=== PATIENT | female | born 1990 | race Caucasian/White ===

== ENCOUNTER → 2020-07-05 | Outpatient (REF) | payer BC ==
[2020-07-05 18:02] LABS: HEMATOCRIT 41.2 % (36.0-47.0); HEMOGLOBIN 13.3 g/dl (12.0-15.5); MEAN CORPUSCULAR HEMOGLOBIN 28.2 pg (27.0-33.0); MEAN CORPUSCULAR HGB CONC 32.3 g/dl (32.0-36.5); MEAN CORPUSCULAR VOLUME 87.5 fl (80.0-96.0); PLATELET COUNT, AUTOMATED 145 10^3/uL (150-450); RED BLOOD COUNT 4.71 10^6/uL (4.00-5.40); WHITE BLOOD COUNT 14.1 10^3/uL (4.0-10.0)
[2020-07-05 19:19] LABS: HEPATITIS C VIRUS ABY INDEX < 0.0 INDEX (<0.8); HIV 1&2 SCREEN CENTAUR NEGATIVE (NEGATIVE)
[2020-07-05 20:03] LABS: CHLAMYDIA DNA AMPLIFICATION NEGATIVE (NEGATIVE); GC DNA AMPLIFICATION NEGATIVE (NEGATIVE)
== END ==
LOC: M PLALAB 15:02
PROVIDERS: ATTEND Advanced Practice Midwife
DX: Z34.01 Encounter for supervision of normal first pregnancy, first trimester (principal)

== ENCOUNTER → 2020-09-23 | Outpatient (CLI) | payer BC ==
--- NOTE | 2020-09-23 10:09 | REP ---
INDICATION: ANATOMY. Nineteen weeks 3 days by LMP MICHAEL by LMP February 14, 2021. COMPARISON: None. TECHNIQUE: Transabdominal obstetric sonography. FINDINGS: Scanning through the gravid uterus demonstrates a viable single intrauterine gestation in transverse head to the maternal left lie. motion is observed and heart rate is recorded at 142 beats per minute. A anterior placenta is seen, grade 0, without evidence of placenta previa. Closed cervical length is measured at 3.7 cm transabdominally. No extrauterine abnormality is observed. Amniotic fluid is subjectively normal. No anomaly is seen. The following anatomic structures are identified and felt to be sonographically unremarkable: cranium, choroid plexus, cavum, cerebellum and posterior fossa, face and profile, lungs, diaphragm, left-sided stomach, abdominal wall cord insertion, three-vessel umbilical cord, kidneys and bladder, spine, and upper and lower extremities. four-chamber heart with left and right ventricular outflow tract views are less than optimally achieved today due to position. Biometry chart: BPD 4.6 cm, 20 weeks 0 days Head circumference 17.4 cm, 20 weeks 0 days Abdominal circumference 15.3 cm, 20 weeks 3 days Femur length 3.4 cm, 20 weeks 5 days Humeral length 3.2 cm, 20 weeks 6 days HC AC ratio normal 1.14 Cephalic index normal 0.73 Estimated weight 357 g, 0 lb 12 oz, greater than 97th percentile for 19 weeks 3 days. IMPRESSION: Viable single intrauterine gestation at 20 weeks 3 days by today's composite sonographic criteria. MICHAEL by today's sonography February 07, 2021. No complication identified. <Electronically signed by Grzegorz Lau > 09/23/20 1001
== END ==
LOC: M WHC 08:03
PROVIDERS: ATTEND Advanced Practice Midwife
DX: Z34.02 Encounter for supervision of normal first pregnancy, second trimester (principal); Z3A.20 20 weeks gestation of pregnancy

== ENCOUNTER → 2020-10-18 | Outpatient (CLI) | payer BC ==
--- NOTE | 2020-10-18 16:47 | REP ---
INDICATION: F/U ANATOMYY COMPARISON: 09/23/2020 TECHNIQUE: Transabdominal obstetrical ultrasound with color Doppler evaluation. FINDINGS: Examination demonstrates a single live intrauterine in cephalic presentation. motion is identified by technologist. Placenta is noted anterior and grade 1 without evidence for placenta previa or abruption. Amniotic fluid volume is normal. Cervix measures 3.7 cm in length and appears closed.. Gestational age by LMP and 1st U/S 23 weeks 0 days with MICHAEL 02/14/2021. Gestational age by current measurements 24 weeks 1 day with MICHAEL 02/06/2021. FHR equals 147 beats per minute. Estimated weight 643 grams (85thpercentile). Anatomical assessment demonstrates normal structures including cranium, choroid plexus, cerebellum, lungs, diaphragm, stomach, abdominal wall, kidneys/bladder, spine, extremities and three-vessel cord. Continued limited evaluation of the heart/ventricular outflow tracts again noted.. IMPRESSION: Single live intrauterine in cephalic presentation demonstrating appropriate interval growth. Limited evaluation of the heart/ventricular outflow tracts again noted due to positioning. <Electronically signed by Anam Gonzalez > 10/18/20 [id number]
== END ==
LOC: M WHC 16:01
PROVIDERS: ATTEND Advanced Practice Midwife
DX: Z34.02 Encounter for supervision of normal first pregnancy, second trimester (principal)

== ENCOUNTER → 2020-11-19 | Outpatient (CLI) | payer BC ==
--- NOTE | 2020-11-21 05:02 | REP ---
INDICATION: F/U ANATOMY COMPARISON: 10/18/2020 TECHNIQUE: Transabdominal obstetrical ultrasound with color Doppler evaluation. FINDINGS: Examination demonstrates a single live intrauterine in cephalic presentation. motion is identified by technologist. Placenta is noted anterior and grade 1 without evidence for placenta previa or abruption. Amniotic fluid volume is normal. Cervix measures 3.8 cm in length and appears closed.. Selected gestational age: 27 weeks 4 days with MICHAEL 02/14/2021. Gestational age by current measurements 29 weeks 6 days with MICHAEL 01/29/2021. FHR equals 139 beats per minute. Estimated weight 1386 grams (greater than 97thpercentile). Anatomical assessment is again limited with regards to heart/ventricular outflow tracts due to positioning and motion. IMPRESSION: 1. Single live intrauterine demonstrating greater than expected interval growth. 2. Incomplete evaluation of the heart/ventricular outflow tracts due to positioning and motion. <Electronically signed by Anam Gonzalez > 11/21/20 [id number]
== END ==
LOC: M WHC 15:35
PROVIDERS: ATTEND Specialist
DX: Z34.82 Encounter for supervision of other normal pregnancy, second trimester (principal); Z3A.24 24 weeks gestation of pregnancy

== ENCOUNTER → 2020-12-07 | Outpatient (CLI) | payer BC, OTHER ==
[2020-12-07 15:39] LABS: HEMATOCRIT 35.6 % (36.0-47.0); HEMOGLOBIN 11.3 g/dl (12.0-15.5); MEAN CORPUSCULAR HEMOGLOBIN 28.1 pg (27.0-33.0); MEAN CORPUSCULAR HGB CONC 31.7 g/dl (32.0-36.5); MEAN CORPUSCULAR VOLUME 88.6 fl (80.0-96.0); PLATELET COUNT, AUTOMATED 223 10^3/uL (150-450); RED BLOOD COUNT 4.02 10^6/uL (4.00-5.40); WHITE BLOOD COUNT 10.6 10^3/uL (4.0-10.0)
== END ==
LOC: M PLALAB 09:28
PROVIDERS: ATTEND Specialist
DX: Z34.03 Encounter for supervision of normal first pregnancy, third trimester (principal)

== ENCOUNTER → 2021-01-20 | Outpatient (REF) | payer BC, OTHER | LOC: M SFHCWAGY 16:59 | PROVIDERS: ATTEND Advanced Practice Midwife | DX: O99.213 Obesity complicating pregnancy, third trimester (principal); E66.9 Obesity, unspecified; Z3A.00 Weeks of gestation of pregnancy not specified ==

== ENCOUNTER 2021-02-19 20:50 | Inpatient (IN) | payer BC, OTHER ==
[~2021-02-19] VITALS: Ht 157.5 cm; Wt 97.7 kg
[2021-02-19] MEDS ORDERED: ONDANSETRON 4MG/2ML VIAL IV ONE (22:05)
[2021-02-19] MEDS ORDERED: LACTATED RINGER'S 1000 ML IV STA (22:05)
[2021-02-19] MEDS ORDERED: ONDANSETRON 4MG/2ML VIAL As Ordered ONE (22:05)
[2021-02-19] MEDS ORDERED: LR 1,000 ML IV SCH (22:05)
[2021-02-19 22:10] VITALS: BP 107/73
[2021-02-19] MEDS ORDERED: PENICILLIN G POTASSIUM IV 5 MU in D5W MINI-BAG PLUS 100 ML IV STA (22:19)
[2021-02-19] MEDS: LR 1,000 ML IV SCH (22:20)
--- NOTE | 2021-02-19 22:29 | HPEPDOC ---
Obstetrical History & Physical General Date of Admission Feb 19, 2021 at 22:16 History of Present Illness 30yo G1 at 40w5d presents with c/o contractions. Reports active movement. No vaginal bleeding or LOF. 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 BREAST: . ABDOMEN: Gravid and non-tender to touch. FETUS: Is vertex (VTX) by sterile vaginal examination (SVE), fetus is vertex (VTX) by Jayesh. HEART RATE: Regular rate and rhythm. LUNGS: Clear to auscultation (CTA). EXTREMITIES: No edema. No clonus. Deep tendon reflexes (DTRs) + . Pertinent Laboratoy Data Blood Type: A+ RBC Antibody Screen: Negative HIV: Negative Hepatitis B: Negative Hepatitis C: Negative Rapid Plasma Reagin: Nonreactive Rubella: Immune Chlamydia/Gonorrhea: Negative Group B Streptococcus: Positive Glucose Tolerance Test: 99 Anatomy Ultrasound Placenta Location: Anterior Placenta Previa: No Vaginal Examination Dilation: 4 cm Effacement: 90% Station: -2 Cervical Consistency: Soft Cervical Position: Anterior Presentation: Cephalic presentation Assessment Variability: Moderate Accelerations: Positive Tocometer Contractions: Yes Assessment/Plan Assessment 30yo G1 at 40w5d in active labor Reassuring status Plan Admit and orient. Health Aide and consent. Group B Streptococcus (GBS) positive. Labs and intravenous (IV) per unit protocol. Counseled on Pitocin and induction of labor (IOL). Anticipate normal spontaneous delivery (). C-S as appropriate. NADIA KHOURY MD. Feb 19, 2021 22:29
[2021-02-19] MEDS ORDERED: ZYRTTAB8 PO ×2 (22:33)
[2021-02-19] MEDS ORDERED: PRENTAB9 PO (22:33)
[2021-02-19] MEDS ORDERED: ACET-897 PO (22:33)
[2021-02-19] MEDS ORDERED: HOME MED LIST COMPLETE! XX SCH (22:35)
[2021-02-19 22:55] LABS: HEMOGLOBIN 12.4 g/dl (12.0-15.5); MEAN CORPUSCULAR HEMOGLOBIN 27.2 pg (27.0-33.0); MEAN CORPUSCULAR HGB CONC 32.6 g/dl (32.0-36.5); MEAN CORPUSCULAR VOLUME 83.3 fl (80.0-96.0); PLATELET COUNT, AUTOMATED 308 10^3/uL (150-450); RED BLOOD COUNT 4.56 10^6/uL (4.00-5.40); WHITE BLOOD COUNT 19.2 10^3/uL (4.0-10.0)
[2021-02-20] VITALS (68 sets, daily range): BP systolic 80–139; BP diastolic 47–84
[2021-02-20] MEDS ORDERED: FENTANYL 2MCG/ML ROPIVACAINE 0.2% IN 0.9% NACL 100ML IVBAG As Ordered ONE (01:01)
[2021-02-20] MEDS ORDERED: FENTANYL/ROPIVACAINE/NACL BAG 100 ML EPIDURAL SCH (02:00)
[2021-02-20] MEDS ORDERED: ePHEDrine SULFATE 25 MG/5 ML(5MG/ML) SYRINGE IV PRN (02:00)
[2021-02-20] MEDS ORDERED: ONDANSETRON 4MG/2ML VIAL IV PRN (02:00)
[2021-02-20] MEDS ORDERED: EPIDURAL/PCA KEYS XX PRN (02:00)
[2021-02-20] MEDS ORDERED: diphenhydrAMINE 50MG/ML VIAL (J1200) IV PRN (02:00)
[2021-02-20] MEDS ORDERED: EPIDURAL COMMENT XX SCH (02:00)
[2021-02-20] MEDS ORDERED: LACTATED RINGER'S 1000 ML IV PRN (02:00)
[2021-02-20] MEDS ORDERED: NALOXONE INJ 0.4MG/1ML VIAL (J2310 PER 1MG) IV PRN (02:00)
[2021-02-20] MEDS ORDERED: REFRIGERATOR IV KEYS XX PRN (02:00)
[2021-02-20] MEDS ORDERED: PENICILLIN G POTASSIUM IV 2.5 MU in IV 1 EA IV SCH (03:00)
[2021-02-20] MEDS: LR 1,000 ML IV SCH ×2 (06:07→08:54)
[2021-02-20] MEDS ORDERED: OXYTOCIN 30 UNITS IN 0.9% NaCl 500ML IV BAG (J2590) As Ordered ONE (06:38)
[2021-02-20] MEDS ORDERED: LR 1,000 ML IV SCH (06:40)
[2021-02-20] MEDS ORDERED: OXYTOCIN DRIP 30 UNITS in IV 1 EA IV SCH ×2 (06:40→14:00)
--- NOTE | 2021-02-20 06:46 | IPNPDOC ---
Obstetrical Progress Note Date of Service Feb 20, 2021 Subjective Comfortable following epidural. Has had maternal and tachycardia. Patient WBC 19,000. She is unsure when she ruptured. Had some leakage yesterday morning around 10am. on exam no membranes to rupture. Objective Vital Signs Date Time Temp Pulse Resp B/P (MAP) Pulse Ox O2 Delivery O2 Flow Rate FiO2 02/20/21 05:33 110 101/57 (72) Assessment Variability: Moderate Heart Rate Tracing: Category I Tocometer Contractions: Yes Frequency: regular Sterile Vaginal Examination Dilation: 6 cm Effacement (%): 100% Station: -1 Cervical Consistency: Soft Cervical Position: Anterior Postion/Presentation: Cephalic presentation Assessment and Plan Age: 30 Status: Reassuring Group B Streptococcus: Positive Additional Comments - will start on unasyn for concerns of prolong rupture of membrane with the start of chorioamnionitis - pitocin augmentation. NADIA KHOURY MD. Feb 20, 2021 06:46
[2021-02-20] MEDS: AMPICILLIN SOD/SULBACTAM SOD 3 GM in D5W MINI-BAG PLUS 100 ML IV SCH ×2 (07:55→13:25)
[2021-02-20] MEDS ORDERED: PHENYLephrine 500MCG 5ML (100MCG/ML) SYRINGE As Ordered ONE (07:59)
[2021-02-20 13:59] LABS: CORD GAS ABE V -3.2; CORD GAS HCO3 V 22.5 MEQ/L; CORD GAS O2 SAT V 58.5 %; CORD GAS PCO2 V 42.5 mmHg; CORD GAS PH V 7.341 UNITS; CORD GAS PO2 V 26.6 mmHg; CORD GAS SBC V 20.8 MEQ/L; CORD GAS TCO2 V 23.8 MEQ/L
[2021-02-20] MEDS ORDERED: ACETAMINOPHEN 500 MG TAB PO PRN (14:00)
[2021-02-20] MEDS ORDERED: RHOGAM 300 MCG (1500 IU) INJ (J2790) IM SCH (14:00)
[2021-02-20] MEDS ORDERED: MEASLES,MUMPS,RUBELLA VACCINE INJ (MMR-II) (90707) SC SCH (14:00)
[2021-02-20] MEDS ORDERED: MOM 30ML SUSPENSION UDC PO PRN (14:00)
[2021-02-20] MEDS ORDERED: IBUPROFEN 600MG TAB PO PRN (14:00)
[2021-02-20] MEDS ORDERED: DIBUCAINE 1% OINTMENT 30GM TOP PRN (14:00)
[2021-02-20] MEDS ORDERED: DOCUSATE SODIUM 100MG CAPSULE PO PRN (14:00)
[2021-02-20] MEDS ORDERED: IBUPROFEN 800 MG TAB PO PRN (14:00)
[2021-02-20] MEDS ORDERED: METHYLERGONOVINE MALEATE 0.2 MG/ML VIAL (J2210) IM PRN (14:00)
[2021-02-20] MEDS ORDERED: ACETAMINOPHEN TAB 650MG DOSE (2X325MG) PO PRN (14:00)
[2021-02-20] MEDS ORDERED: METHYLERGONOVINE MALEATE 0.2 MG TAB PO PRN (14:00)
[2021-02-20 14:02] LABS: CORD GAS ABE A -5.3; CORD GAS HCO3 A 24.3 MEQ/L; CORD GAS O2 SAT A 35.7 %; CORD GAS PCO2 A 64.3 mmHg; CORD GAS PH A 7.196 UNITS; CORD GAS PO2 A 20.5 mmHg; CORD GAS SBC A 18.6 MEQ/L; CORD GAS TCO2 A 26.3 MEQ/L
--- NOTE | 2021-02-20 14:09 | DNPDOC ---
[facility] Delivery Note Delivery Note DATE OF DELIVERY: 02/20/2021 TIME OF : 1334 GENDER: 89 APGARS: 9 and 9. WEIGHT: 3530 g or 7 lbs. 13 oz. LACERATIONS: 1MLL ANESTHESIA: epidural ESTIMATED BLOOD LOSS: 400 ml COUNTS: 5 laparotomy sponges accounted for prior to after delivery. 3 sharps removed from delivery field. DELIVERY NOTE: On on 02/20/2021 at 1334 this patient is a 30-year-old 1 now para 1 a spontaneous vaginal delivery of a liveborn female infant Apgars 8 and 9 weight was 3530 g 7 lbs. 13 oz. Head was delivered occiput anterior (OA). Nuchal cord was manually reduced, followed by delivery of the shoulders and corpus. was handed to mom with a good cry. Cord was clamped times two and was cut by support person under my direction. Placenta was then drained and delivered grossly intact. A premixed bag of 500 mL of normal saline with 30 units of Pitocin was then bolused along with uterine massage until the uterus was firm. On inspection there was a 1MLL that was repaired with 3-0 Vicryl after infusion with 1% lidocaine. On reinspection, cervix, vagina, perineum was grossly intact and hemostatic. Mom and baby in recovery on stable condition. NADIA KHOURY MD. Feb 20, 2021 14:09
[2021-02-20] MEDS ORDERED: METHYLERGONOVINE MALEATE 0.2 MG/ML VIAL (J2210) ONE (15:07)
[2021-02-21 06:00] VITALS: BP 99/55
[2021-02-21] MEDS: PRENATAL VITAMINS CHEWABLE TABLET PO SCH (10:03)
[2021-02-21 17:46] VITALS: BP 101/57
[2021-02-22 05:43] VITALS: BP 113/66
[2021-02-22] MEDS: PRENATAL VITAMINS CHEWABLE TABLET PO SCH (08:51)
== END 2021-02-22 13:00 | disposition home or self-care (01) | DRG 560 ==
LOC: M LDO 20:50 → M LDI 22:16 → M OBS 02-20 15:52
PROVIDERS: ADMIT Obstetrics & Gynecology; ATTEND Obstetrics & Gynecology
PROC: 10E0XZZ Delivery of Products of Conception, External Approach (ICD-10-PCS; principal; 2021-02-20)
PROC: 0HQ9XZZ Repair Perineum Skin, External Approach (ICD-10-PCS; 2021-02-20)
DX: O48.0 Post-term pregnancy (principal); Z37.0 Single live birth; Z3A.40 40 weeks gestation of pregnancy; O99.820 Streptococcus B carrier state complicating pregnancy; O69.81X0 Labor and delivery complicated by cord around neck, without compression, not applicable or unspecified; O70.0 First degree perineal laceration during delivery